=== PATIENT | female | born 1955 | race Caucasian/White ===

== ENCOUNTER → 2020-11-12 | Outpatient (CLI) | payer BC | LOC: MAMO 09:30 | DX: Z12.31 Encounter for screening mammogram for malignant neoplasm of breast (principal) | CPT/HCPCS: 77063; 77067 ==

== ENCOUNTER → 2021-11-25 | Outpatient (CLI) | payer BC | LOC: HEART 5 11-12 09:30 | DX: R01.1 Cardiac murmur, unspecified (principal); R06.02 Shortness of breath; I07.1 Rheumatic tricuspid insufficiency; I27.20 Pulmonary hypertension, unspecified | CPT/HCPCS: 93306 ==